=== PATIENT | male | born 1965 ===

== ENCOUNTER 2016-09-04 13:20 | Emergency (ER) | payer SELFPAY ==
[2016-09-04 13:35] VITALS: BMI 23.6
[2016-09-04 13:38] VITALS: RESP 18; O2SAT 98
[2016-09-04] MEDS ORDERED: Lidocaine 1% w Epi 1:100,000 Inj INJ ONE (14:46)
[2016-09-04] MEDS ORDERED: Bacitracin 500 Units/gm Oint Foilpak UD TOP ONE (14:46)
[2016-09-04] MEDS ORDERED: Bacitracin 500 Units/gm Oint Foilpak UD ONE (15:08)
[2016-09-04] MEDS ORDERED: Lidocaine 1% Inj (20ml) ONE (15:19)
[2016-09-04] MEDS ORDERED: Lidocaine 2% w Epi 1:100,000 Inj IJ ONE (15:20)
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
[2016-09-04 16:40] VITALS: BP 103/67; PULSE 90; TEMP 98
== END 2016-09-04 16:15 | disposition home or self-care (01) ==
LOC: C.ER 13:20
DX: S41.111A Laceration without foreign body of right upper arm, initial encounter (principal); X99.1XXA Assault by knife, initial encounter; Y92.009 Unspecified place in unspecified non-institutional (private) residence as the place of occurrence of the external cause